=== PATIENT | female | born 1965 | race Hispanic/Latino ===

== ENCOUNTER 2019-11-14 19:17 | Emergency (ER) | payer SELFPAY ==
[2019-11-14] MEDS ORDERED: MORPHINE SULFATE 4 MG/1ML SYG ONE (19:28)
[2019-11-14] MEDS ORDERED: MORPHINE SULFATE 2 MG/ML 1ML SYG ONE (19:28)
[2019-11-14] MEDS ORDERED: ONDANSETRON ODT 4 MG TAB ONE (19:32)
== END 2019-11-14 21:47 | disposition home or self-care (01) ==
LOC: EDH 19:17
DX: S82.891A Other fracture of right lower leg, initial encounter for closed fracture (principal); X50.1XXA Overexertion from prolonged static or awkward postures, initial encounter; Y93.89 Activity, other specified; Y92.098 Other place in other non-institutional residence as the place of occurrence of the external cause; Y99.8 Other external cause status
CPT/HCPCS: 29515; 73610; 96372; 99283; J2270